=== PATIENT | male | born 1945 | race Caucasian/White ===

== ENCOUNTER 2016-09-26 13:37 | Emergency (ER) | payer OTHER ==
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
[~2016-09-26 13:37] MED LIST: ACTOS; ALPRAZOLAM PO; ASPIRIN81 MG PO; CERTAGEN PO; CIPRO PO; EFFEXOR; EFFEXOR XR PO; FISH OIL 1,0001 CAP PO; FLEXERIL10 MG PO; GLUCOTROL10 MG PO; GLUCOVANCE 5/501 TA1; KEFLEX PO; LANTUS100 U/ML; LASIX; LEVEMIR; LEVEMIR INJ; LEVEMIR100 UNITS/ SUBQ; LIPITOR80 MG PO; LORTAB 5/500 TA1 TA1 PO; METFORMIN HCL1000 M1 PO; MEVACOR; MEVACOR PO; MOBIC15 MG PO; MYSOLINE50 MG PO; NOVOLIN 70/30 V10 ML INJ; NOVOLOG100 U/ML SUBQ; NOVOLOG100 UNITS/ SUBQ; PAXIL; PAXIL PO; PRIMIDONE250 MG; TAGAMET PO; TOPROL XL; TOPROL XL PO; ULTRAM PO; VICODIN 5/500 T1 TAB PO; VICODIN PO; VOLTAREN75 MG PO; ZANTAC
[2016-09-26] MEDS ORDERED: BLADDER MED (13:40)
== END 2016-09-26 16:38 | disposition home or self-care (01) ==
LOC: SED 13:37
DX: S34.101A Unspecified injury to L1 level of lumbar spinal cord, initial encounter (principal); I11.9 Hypertensive heart disease without heart failure; I51.9 Heart disease, unspecified; E11.9 Type 2 diabetes mellitus without complications; Z95.1 Presence of aortocoronary bypass graft; X58.XXXA Exposure to other specified factors, initial encounter; Y93.89 Activity, other specified
CPT/HCPCS: 72131; 99284